=== PATIENT | male | born 1940 | race Caucasian/White ===

== ENCOUNTER 2019-03-14 10:26 | Day surgery (SDC) | payer MEDICARE, OTHER ==
[~2019-03-14] VITALS: Ht 177.8 cm; Wt 82.5 kg
[~2019-03-14 10:26] MED LIST: ADULT LOW DOSE81 MG PO; MUPIROCIN22 GM TOP; PERIDEX473 ML MM; SIMVASTATIN40 MG PO
--- NOTE | 2019-03-14 11:55 | NUR ---
03/14/19 1155 Tessie Sunshine 1142 PT TO PACU SLEEPING RESPONDS TO VERBAL BUT FALLS ASLEEP RIGHT AFTER.
--- NOTE | 2019-03-15 13:17 | OR ---
[facility] [address], [place] [address] Signed DATE OF OPERATION: 03/14/2019 SURGEON: Patrick Carlisle MD PREOPERATIVE DIAGNOSIS: History of tubular adenomas x3, 2016. POSTOPERATIVE DIAGNOSIS: Polyp of sigmoid (excised). PROCEDURE: Total colonoscopy to cecum with cold snare polypectomy x1. ANESTHESIA: Intravenous sedation, fentanyl 100 mcg, Versed 2 mg. INDICATION: This 78-year-old white man is a patient of MARINA Bronson and underwent colonoscopy in 2016, which showed three tubular adenomas. He is symptom free at this time. He is admitted to undergo surveillance colonoscopy. He understands risks of bleeding, infection, perforation and wished to proceed. FINDINGS: The prep was excellent. A polyp was noted at the sigmoid, which was excised with cold snare polypectomy technique. The remaining colon was normal. DESCRIPTION OF PROCEDURE: The patient was brought to the endoscopy suite and placed in lateral decubitus position. He was given intravenous sedation to the point of slurred speech and nystagmus with full cardiopulmonary monitoring. Digital rectal examination was normal. The Olympus video colonoscope was passed in the rectum and manipulated throughout the colon. Noted on the way in the sigmoid was a polyp, which was somewhat inflammatory in appearance. This was excised with cold snare technique. The polyp could not be grasped and was ultimately suctioned into the system. The scope was passed beyond this ultimately to the cecum. The cecum was examined and found to be normal. Scope was carefully withdrawn from that point and examination throughout showed no sign of abnormality, other than the excision site in sigmoid. Retroflexed view of the rectum was normal. The polyp was found in the trap that had been placed. It was sent for pathology as sigmoid polyp. The scope was removed. The Electronically Signed By: PATRICK CARLISLE MD 03/15/19 1317 PATIENT NAME: ZAYDA BARNES OPERATIVE REPORT DATE OF : 38 REPORT #: [id number] PHYSICIAN: PATRICK CARLISLE MD PCP: EILEEN SOLIS REPORT IS CONFIDENTIAL AND NOT TO BE RELEASED WITHOUT AUTHORIZATION [facility] [address], [place] [address] Signed patient was taken to recovery room in good condition. CONCLUDING DIAGNOSIS: Polyp x1. PLAN: Recommend repeat colonoscopy in 5 years sooner if clinically indicated. He will return to the ongoing care of Eileen Solis. MD ISAIAS Espinoza/MODL /[id number] cc: MARINA Bronson Copies: EILEEN SOLIS ~ Electronically Signed By: PATRICK CARLISLE MD 03/15/19 1317 PATIENT NAME: ZAYDA BARNES OPERATIVE REPORT DATE OF : 38 REPORT #: [id number] PHYSICIAN: PATRICK CARLISLE MD PCP: EILEEN SOLIS REPORT IS CONFIDENTIAL AND NOT TO BE RELEASED WITHOUT AUTHORIZATION
--- NOTE | 2019-03-17 17:34 | PATH ---
[facility] [address], [place] [address] Signed SPECIMEN(S): A SIGMOID POLYP SPECIMEN SOURCE: A. SIGMOID POLYP CLINICAL HISTORY: No preop or clinical information is given on requisition. MICROSCOPIC DESCRIPTION: Histologic sections of all submitted blocks are examined by light microscopy. These findings, together with the gross examination, support the pathologic diagnosis. FINAL PATHOLOGIC DIAGNOSIS: Colon, sigmoid, polyp, polypectomy: - Tubular adenoma. - Negative for high-grade dysplasia or malignancy. NAL:cml:C2NR GROSS DESCRIPTION: The specimen, labeled "FH, sigmoid polyp," is received in formalin and consists of two pink-riavs soft tissue fragment(s) that measure 0.1-0.3 cm in greatest dimension. The specimen is entirely submitted in cassette (A1). JS (under the direct supervision of a pathologist) The Gross Description was prepared using a voice recognition system. The report was reviewed for accuracy; however, sound-alike word errors, addition and/or deletions may occur. If there is any question about this report, please contact Client Services. PERFORMING LABORATORY: The technical component was performed by [facility], [address] [place] [id number] (Assessment Rn: Natalya Cohen MD; CLIA# [id number]). [facility], [address] [address] (Assessment Rn: Monty Sunshine MD; CLIA# [id number]). Diagnostician: Christiane Welch MD Pathologist Electronically Signed 03/17/2019 PATIENT NAME: ZAYDA BARNES PATHOLOGY DATE OF : 38 REPORT #: [id number] PHYSICIAN: [facility] PCP: EILEEN BERNAL REPORT IS CONFIDENTIAL AND NOT TO BE RELEASED WITHOUT AUTHORIZATION [address] [address] Signed Copies: ~ PATIENT NAME: ZAYDA BARNES PATHOLOGY DATE OF : 38 REPORT #: [id number] PHYSICIAN: [facility] PCP: EILEEN BERNAL REPORT IS CONFIDENTIAL AND NOT TO BE RELEASED WITHOUT AUTHORIZATION
== END 2019-03-14 12:24 | disposition home or self-care (01) ==
LOC: OPS 10:26 → DS 10:35 → OPS 11:30 → DS 11:30 → OPS 12:24
PROVIDERS: Surgery
PROC: 0DBN8ZZ Excision of Sigmoid Colon, Via Natural or Artificial Opening Endoscopic (ICD-10-PCS; principal; 2019-03-14 11:30)
DX: Z12.11 Encounter for screening for malignant neoplasm of colon (principal); D12.5 Benign neoplasm of sigmoid colon; E78.5 Hyperlipidemia, unspecified; Z86.010 Personal history of colon polyps; Z88.8 Allergy status to other drugs, medicaments and biological substances; Z85.46 Personal history of malignant neoplasm of prostate; Z85.820 Personal history of malignant melanoma of skin
CPT/HCPCS: 99153; G0500; J2250; J3010; J7121